=== PATIENT | male | born 1955 | race American Indian/Alaskan Native ===

== ENCOUNTER 2016-11-05 22:13 | Inpatient (IN) | payer MEDICARE ==
[2016-11-05] MEDS ORDERED: HALDOL ONE (22:35)
[2016-11-05] MEDS ORDERED: HALDOL IM ONE (22:37)
--- NOTE | 2016-11-05 23:02 | Emergency Department Report ---
HPI - General Chief Complaint: Psych Time Seen by Provider: 11/05/16 22:21 - HPI HPI: This is a 61-year-old -Burkin[place] male presents to the emergency department with what appears to be some type of substance abuse/intoxication and making claims to his family, as well as to myself, that he wanted to tonight. The patient at one point says he was being funny but did say "I told my family that I want to kill myself." This caused his daughter to call EMS. The patient appears intoxicated versus psychosis but continues to talk very loudly, is easily agitated and is displaying some tangential thoughts. Records show that he has a past nuchal history of alcohol abuse, chronic kidney disease and hypertension. ED Past Medical Hx - Past Medical History Hx Hypertension: Yes Hx Renal Disease: Yes Hx Psychiatric Treatment: Yes Additional medical history: gout - Social History Smoking Status: Current Every Day Smoker Substance Use Type: Alcohol - Medications Home Medications: Home Medications Medication Instructions Recorded Confirmed Last Taken Type Carvedilol [Coreg] 12.5 mg PO BID 11/05/16 11/05/16 Unknown History Fluticasone [Flonase] 2 spray NS QDAY 11/05/16 11/05/16 Unknown History Ketoconazole 2% [Nizoral] 1 applicatio TP QDAY 11/05/16 11/05/16 Unknown History Loratadine [Claritin] 10 mg PO DAILY 11/05/16 11/05/16 Unknown History amLODIPine [Norvasc] 10 mg PO DAILY 11/05/16 11/05/16 Unknown History ED Review of Systems ROS: Stated complaint: SUICIDAL Other details as noted in HPI Comment: Unobtainable due to pts medical conditions Psychiatric: suicidal thoughts. denies: homicidal thoughts Physical Exam - Physical Exam Vital Signs: Vital Signs 11/05/16 22:27 Temperature 98.8 F Pulse Rate 106 H Respiratory 20 Rate Blood Pressure 161/105 O2 Sat by Pulse 99 Oximetry Physical Exam: GENERAL: The patient is well-developed well-nourished. HEENT: Normocephalic. Atraumatic. Extraocular motions are intact. Patient has moist mucous membranes. Pupils equal reactive to light bilaterally. NECK: Supple. Trachea is midline. CHEST/LUNGS: Clear to auscultation. There is no respiratory distress noted. HEART/CARDIOVASCULAR: Regular. There is no tachycardia. There is no gallop rub or murmur. ABDOMEN: Abdomen is soft, nontender. Patient has normal bowel sounds. There is no abdominal distention. SKIN: Skin is warm and dry. NEURO: The patient is awake, alert but appears intoxicated. The patient is cooperative. The patient has no focal neurologic deficits. MUSCULOSKELETAL: There is no tenderness or deformity. There is no limitation range of motion. There is no evidence of acute injury. PSYCH: Patient appears intoxicated. Goes on tangential ramblings. Easily agitated. ED Course Vital Signs 11/05/16 22:27 Temperature 98.8 F Pulse Rate 106 H Respiratory 20 Rate Blood Pressure 161/105 O2 Sat by Pulse 99 Oximetry ED Medical Decision Making - Lab Data Result diagrams: 11/05/16 22:49 11/05/16 22:49 - Medical Decision Making This is a 61-year-old male presents to the emergency department with alcohol intoxication and claims of suicidal ideations to his family and then again upon presentation to the emergency department. The patient later says that he was just kidding. While the patient does display signs of alcohol intoxication, he does have some tangential ramblings and I cannot rule out underlying psychosis. With this behavior, along with the suicidal ideations, the patient has been made a 1013. Labs were ordered to try and get the patient medically cleared for psychiatric placement. However the patient had some abnormal labs show a. Along with the 0.28 blood alcohol level, the patient has a anion gap of 30 and a carbon dioxide /bicarbonate of 17. A venous pH was sent and came back acidotic at 7.307. This is most likely secondary to his ethanol consumption but a lactic acid level , acetaminophen, Tylenol and serum osmolality were sent for further evaluation. However with these labs, the patient will be a medical admit and has been accepted by the hospitalist, Dr. Cisneros. - Differential Diagnosis alcohol intoxication, polysubstance abuse, schizophrenia, bipolar Critical Care Time: No Critical care attestation.: If time is entered above; I have spent that time in minutes in the direct care of this critically ill patient, excluding procedure time. ED Disposition Clinical Impression: High anion gap metabolic acidosis, Renal insufficiency, Suicidal ideations Hypertension Qualifiers: Hypertension type: essential hypertension Qualified Code(s): I10 - Essential ( primary) hypertension Alcohol intoxication Qualifiers: Complication of substance-induced condition: uncomplicated Qualified Code(s): F10.920 - Alcohol use, unspecified with intoxication, uncomplicated Disposition: OP ADMITTED IP TO THIS HOSP Is pt being admited?: Yes Condition: Stable Instructions: Hypertension (ED) Referrals: PRIMARY CARE, [Primary Care Provider] - 3-5 Days Time of Disposition: 02:14
[2016-11-05 23:16] LABS: Hematocrit 38.4 % (35.5-45.6); Hemoglobin 12.8 gm/dl (11.8-15.2); Mean Corpuscular HGB Conc 33 % (32-34); Mean Corpuscular Hemoglobin 32 pg (28-32); Mean Corpuscular Volume 97 fl (84-94); Platelet Count 283 K/mm3 (140-440); Red Blood Count 3.97 M/mm3 (3.65-5.03); Red Cell Distribution Width 13.3 % (13.2-15.2); White Blood Count 10.8 K/mm3 (4.5-11.0)
[2016-11-05 23:28] LABS: Albumin 4.4 g/dL (3.9-5); Albumin/Globulin Ratio 1.2 %; BUN/Creatinine Ratio 13.12; Bilirubin,Total 0.2 mg/dL (0.1-1.2); Calcium 9.3 mg/dL (8.4-10.2); Chloride 100.3 mmol/L (98-107); Total Protein 8.1 g/dL (6.3-8.2)
[2016-11-06 00:39] LABS: Basophils % (Manual) 0 % (0.0-1.8); Blastocytes % (Manual) 0 %; Diff Status Complete; Platelet Estimate Consistent w Auto
[2016-11-06] MEDS ORDERED: VITAMIN B-1 100 MG, FOLVITE 1 MG, INFUVITE 10 ML in NACL 0.9% 1000 ML 1,000 ML IV ONE (00:45)
[2016-11-06 01:53] LABS: Urine Drugs of Abuse Note Disclamer
[2016-11-06 02:04] LABS: Bilirubin,Urine NEG (Negative); Blood,Urine SM (Negative); Ketones,Urine NEG (Negative); Leukocyte Esterase,Urine NEG (Negative); Mucus,Urine FEW /HPF; Nitrite,Urine NEG (Negative); Protein,Urine <15 mg/dL mg/dL (Negative); Urobilinogen,Urine < 2.0 mg/dL (<2.0)
[2016-11-06] MEDS ORDERED: ATIVAN IV PRN ×2 (02:44)
[2016-11-06] MEDS ORDERED: DULCOLAX PR PRN (02:44)
[2016-11-06] MEDS ORDERED: MILK OF MAGNESIA PO PRN (02:44)
[2016-11-06] MEDS ORDERED: ZOFRAN IV PRN (02:44)
[2016-11-06] MEDS ORDERED: TYLENOL PO PRN (02:44)
--- NOTE | 2016-11-06 02:51 | History and Physical Report ---
History of Present Illness Date of examination: 11/06/16 History of present illness: 61-year-old man with a history of hypertension was brought to the emergency room for suicide ideation. Patient stated he was tired of everything, he made a joke to his daughter about ending it all. EMS was called and brought the patient to the emergency room for evaluation. The patient does not want to be admitted, will not speak. Other review of system is unobtainable PAST SURGICAL HISTORY: Unknown SOCIAL HISTORY: Drinks alcohol, smokes cigars, unknown drug use FAMILY HISTORY: Unknown Medications and Allergies Allergies Allergy/AdvReac Type Severity Reaction Status Date / Time No Known Allergies Allergy Unverified 02/13/13 20:32 Home Medications Medication Instructions Recorded Confirmed Last Taken Type Carvedilol [Coreg] 12.5 mg PO BID 11/05/16 11/05/16 Unknown History Fluticasone [Flonase] 2 spray NS QDAY 11/05/16 11/05/16 Unknown History Ketoconazole 2% [Nizoral] 1 applicatio TP QDAY 11/05/16 11/05/16 Unknown History Loratadine [Claritin] 10 mg PO DAILY 11/05/16 11/05/16 Unknown History amLODIPine [Norvasc] 10 mg PO DAILY 11/05/16 11/05/16 Unknown History Active Meds: Active Medications Acetaminophen (Tylenol) 650 mg PO Q4H PRN PRN Reason: Pain MILD(1-3)/Fever >100.5/BLACK Bisacodyl (Dulcolax) 10 mg GA QDAY PRN PRN Reason: Constipation unrelieved by MOM Enoxaparin Sodium (Lovenox) 30 mg SUB-Q QDAY BILL Folic Acid (Folvite) 1 mg PO QDAY BILL Thiamine HCl 100 mg/ Folic Acid 1 mg/ Multivitamins/Minerals 10 ml/ Sodium Chloride 1,011.2 mls @ 250 mls/hr IV ONCE.ED ONE Stop: 11/06/16 04:47 Last Admin: 11/06/16 02:16 Dose: 250 mls/hr Sodium Chloride (Nacl 0.9% 1000 Ml) 1,000 mls @ 100 mls/hr IV DIRECT BILL Lorazepam (Ativan) 2 mg IV Q1HR PRN PRN Reason: CIWA-Ar 8-15 Lorazepam (Ativan) 4 mg IV Q1HR PRN PRN Reason: CIWA-Ar 16-25 Magnesium Hydroxide (Milk Of Magnesia) 30 ml PO Q4H PRN PRN Reason: Constipation Ondansetron HCl (Zofran) 4 mg IV Q8H PRN PRN Reason: N/V unrelieved by Reglan Thiamine HCl (Vitamin B-1) 100 mg PO DAILY ONE Stop: 11/06/16 02:45 Exam - Physical Exam Narrative exam: Gen. appearance: Patient lying in bed, no apparent distress HEENT: Normocephalic, atraumatic, pupils equally round and reactive to light, extraocular movement intact, and no sclericterus,. No JVD or thyromegaly or nodule,neck supple, no carotid bruit ,mucous membranes moist, no exudate or erythema Heart: S1, S2, regular rate and rhythm Lungs: Clear to auscultation bilaterally, breathing comfortable Abdomen: Positive bowel sounds, nontender, nondistended, no organomegaly Extremity: No edema, cyanosis, clubbing Skin: No rash, nodules, warm, dry Neuro: Oriented 3, cranial nerves II-12 intact, speech is fluent, motor and sensory intact - Constitutional Vitals: Temp Pulse Resp BP Pulse Ox 98.8 F 106 H 18 161/105 99 11/05/16 22:27 11/05/16 22:27 11/06/16 01:32 11/05/16 22:27 11/06/16 01:32 Results - Labs CBC & Chem 7: 11/05/16 22:49 11/05/16 22:49 Labs: Abnormal lab results 11/05/16 11/05/16 11/05/16 Range/Units 22:49 22:49 22:49 MCV 97 H (84-94) fl Lymphocytes % (Manual) 47.0 H (13.4-35.0) % VBG pH (7.320-7.420) Carbon Dioxide 17 L (22-30) mmol/L BUN 21 H (9-20) mg/dL Creatinine 1.6 H (0.8-1.5) mg/dL AST 47 H (5-40) units/L ALT 57 H (7-56) units/L Salicylates (2.8-20.0) mg/dL Plasma/Serum Alcohol 0.28 H (0-0.07) gm% 11/05/16 11/06/16 Range/Units 22:49 00:53 MCV (84-94) fl Lymphocytes % (Manual) (13.4-35.0) % VBG pH 7.307 L (7.320-7.420) Carbon Dioxide (22-30) mmol/L BUN (9-20) mg/dL Creatinine (0.8-1.5) mg/dL AST (5-40) units/L ALT (7-56) units/L Salicylates < 0.3 L (2.8-20.0) mg/dL Plasma/Serum Alcohol (0-0.07) gm% - Imaging and Cardiology EKG: image reviewed Assessment and Plan Suicidal ideation Acute renal insufficiency Hypertension Alcohol abuse Admits medicine Place on 101, consult psych Start IV fluid, CIWA protocol with IV Ativan Start Lopressor for high blood pressure Start DVT prophylaxis
[2016-11-06] MEDS ORDERED: NACL 0.9% 1000 ML 1,000 ML IV SCH (03:00)
[2016-11-06] MEDS: VITAMIN B-1 PO SCH ×2 (05:11→19:57)
[2016-11-06 10:31] LABS: Blood Urea Nitrogen 19 mg/dL (9-20)
--- NOTE | 2016-11-06 10:52 | Discharge Summary ---
Providers - Providers Date of Admission: 11/06/16 02:44 Date of discharge: 11/06/16 Attending physician: VICTORIANO TOLBERT MD 11/06/16 02:49 psychiatry consult [Consult to Mental Health] [CONS] Routine Reason For Exam: SI Place consult to:: PSYCH Notified:: Evaristo Phone number called:: [phone] Was contact made?: Yes If yes, spoke with:: Evaristo Time called:: 08:04 Hospitalization Condition: Stable Disposition: DC/TX PSY HOSP/PSY UNIT Time spent for discharge: 35 mins Exam - Constitutional Vitals: Temp Pulse Resp BP Pulse Ox 98.2 F 97 H 17 150/91 97 11/06/16 08:24 11/06/16 08:30 11/06/16 08:30 11/06/16 08:30 11/06/16 08:30 Plan Activity: advance as tolerated, fall precautions Diet: low fat Special Instructions: smoking cessation Follow up with: PRIMARY CAREMD [Referring] - 3-5 Days WINSTON CALL MD [Staff Physician] - 7 Days
--- NOTE | 2016-11-06 13:38 | Event Note ---
Date: 11/06/16 Patient is examined this morning acute distress reports that his symptoms are much improved. He says that he just lost it and was tired that his place at this point. He understands he needs psychiatric evaluation. A repeat BUN and creatinine was done as normal. If psych uphelds the 1013 patient can be transfered to inpatient psych, if rescinded patient's Home.
--- NOTE | 2016-11-06 19:17 | Consultation ---
History of Present Illness - Reason for Consult Consult date: 11/06/16 Reason for consult: Mental Noah Evaulation Requesting physician: VICTORIANO TOLBERT - Chief Complaint Chief complaint: "I am ready to go home" - History of Present Psychiatric Illness This is a 61-year-old -Ang[place] male presents to the emergency department with what appears to be some type of substance abuse/intoxication and making claims to his family, as well as to myself, that he wanted to tonight. Today patient is calm and cooperative during assessment. He stated that he just lost it when stated in the ER that he is suicidal. He would not tell me why he lost his cool and started back drinking. He stated that he have not took a drink in 6 years, but lost his cool prior to coming to [facility]. He stated that he was diagnosed with bipolar years ago. He stated that he have not taking any psy medications in years. He denies wanting to kill himself now or in the past. He denies SI?HI's, AVH's, and depression symptoms. He denies recreational drug use. Medications and Allergies Allergies Allergy/AdvReac Type Severity Reaction Status Date / Time No Known Allergies Allergy Unverified 02/13/13 20:32 Home Medications Medication Instructions Recorded Confirmed Last Taken Type Carvedilol [Coreg] 12.5 mg PO BID 11/05/16 11/05/16 Unknown History Fluticasone [Flonase] 2 spray NS QDAY 11/05/16 11/05/16 Unknown History Ketoconazole 2% [Nizoral] 1 applicatio TP QDAY 11/05/16 11/05/16 Unknown History Loratadine [Claritin] 10 mg PO DAILY 11/05/16 11/05/16 Unknown History amLODIPine [Norvasc] 10 mg PO DAILY 11/05/16 11/05/16 Unknown History Active Meds: Active Medications Acetaminophen (Tylenol) 650 mg PO Q4H PRN PRN Reason: Pain MILD(1-3)/Fever >100.5/BLACK Bisacodyl (Dulcolax) 10 mg PA QDAY PRN PRN Reason: Constipation unrelieved by MOM Enoxaparin Sodium (Lovenox) 40 mg SUB-Q QDAY BILL Folic Acid (Folvite) 1 mg PO QDAY [facility] Sodium Chloride (Nacl 0.9% 1000 Ml) 1,000 mls @ 125 mls/hr IV DIRECT BILL Lorazepam (Ativan) 2 mg IV Q1HR PRN PRN Reason: CIWA-Ar 8-15 Lorazepam (Ativan) 4 mg IV Q1HR PRN PRN Reason: CIWA-Ar 16-25 Magnesium Hydroxide (Milk Of Magnesia) 30 ml PO Q4H PRN PRN Reason: Constipation Metoprolol Tartrate (Lopressor) 25 mg PO BID BILL Ondansetron HCl (Zofran) 4 mg IV Q8H PRN PRN Reason: N/V unrelieved by Reglan Thiamine HCl (Vitamin B-1) 100 mg PO DAILY [facility] Last Admin: 11/06/16 05:11 Dose: Not Given Mental Status Exam - Vital signs Last Vital Signs Temp 98.4 F 11/06/16 16:00 Pulse 82 11/06/16 16:00 Resp 20 11/06/16 16:00 BP 170/94 11/06/16 16:00 Pulse Ox 97 11/06/16 16:00 - Exam Narrative exam: ROS: (-) depression, (-) psychosis MSE: Appearance: cooperative, calm Behavior: good eye contact Speech: regular rate and tone Mood: "okay" Affect: congruent to mood Thought Process: linear Thought Content: denies SI/HI's and AVH's Motor Activity: lying in bed Cognition: a/ox 3 Insight: fair Judgment: fair Results Result Diagrams: 11/05/16 22:49 11/06/16 09:48 Abnormal lab results 11/06/16 Range/Units 09:48 Lactic Acid 4.00 H* (0.7-2.0) mmol/L All other labs normal. Assessment and Plan Assessment and plan: Impression: Hx of Bipolar. Today patient is calm and cooperative during assessment. He stated that he just lost it when stated in the ER that he is suicidal. He would not tell me why he lost his cool and started back drinking. Patient does not believe he has a mental illness. He denies SI/HI's and AVH's. DD: Anxiety DO Recommendation/Plan: Continue 1013. Will gather collateral information from his daughter to determine proper dispo and treatment.
[2016-11-06] MEDS: FOLVITE PO SCH (20:01)
[2016-11-06] MEDS: LOPRESSOR PO SCH ×2 (20:02→22:00)
[2016-11-06] MEDS: LOVENOX SUB-Q SCH (20:03)
[2016-11-06] MEDS: APRESOLINE IV PRN (21:59)
[2016-11-07] MEDS: APRESOLINE IV PRN (05:28)
[2016-11-07 06:09] LABS: Basophils % (Auto) 0.7 % (0.0-1.8); Eosinophils % (Auto) 2.3 % (0.0-4.3); Hemoglobin 12.4 gm/dl (11.8-15.2); Mean Corpuscular HGB Conc 34 % (32-34); Mean Corpuscular Hemoglobin 32 pg (28-32); Platelet Count 242 K/mm3 (140-440); Red Blood Count 3.87 M/mm3 (3.65-5.03); Red Cell Distribution Width 12.9 % (13.2-15.2); White Blood Count 10.9 K/mm3 (4.5-11.0)
[2016-11-07 06:11] LABS: Mean Corpuscular Volume 95 fl (84-94)
[2016-11-07 06:23] LABS: Alanine Aminotransferase 46 units/L (7-56); Albumin 4.1 g/dL (3.9-5); Albumin/Globulin Ratio 1.4 %; Alkaline Phosphatase 71 units/L (35-129); Anion Gap 19 mmol/L; BUN/Creatinine Ratio 12.72; Blood Urea Nitrogen 14 mg/dL (9-20); Calcium 8.7 mg/dL (8.4-10.2); Carbon Dioxide 23 mmol/L (22-30); Chloride 99.7 mmol/L (98-107); Glucose 117 mg/dL (75-100); Potassium 3.5 mmol/L (3.6-5.0); Sodium 138 mmol/L (137-145); Total Protein 7.1 g/dL (6.3-8.2)
[2016-11-07] MEDS ORDERED: K-DUR PO ONE (08:44)
[2016-11-07] MEDS: FOLVITE PO SCH (09:44)
[2016-11-07] MEDS: LOPRESSOR PO SCH (09:44)
[2016-11-07] MEDS: LOVENOX SUB-Q SCH (09:45)
[2016-11-07] MEDS: VITAMIN B-1 PO SCH (09:46)
[2016-11-07 09:55] VITALS: BP 172/97
--- NOTE | 2016-11-07 12:09 | Progress Note ---
Subjective - Reason for Consult Consult date: 11/07/16 Reason for consult: Psychiatry Follow-up - Chief Complaint Chief complaint: "I am ready to go home" This is a 61-year-old -[place] male presents to the emergency department with what appears to be some type of substance abuse/intoxication and making claims to his family, as well as to myself, that he wanted to tonight. Today patient is calm and cooperative during the assessment. He stated that his biggest issue is relapsing on alcohol (etoh). Patient was more open about his concerns today. He stated that he struggled with getting to sleep. Patient stated that he want to sleep. He is concerned about his kidneys, because he went to an urgent care facility and his renal functions was elevated. He stated, "I am an old man now, I want to be around for my family." He started drinking prior to his admission to [facility] because he felt anxious about his overall health. He stated that he will not do that again and is willing to seek help through rehab services. 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 I spoke with his daughter Ester Jolly [phone]. She agree with her father, she thinks the PHP will help him stay away from the alcohol. He denies SI/HI's, AVH's, and a poor appetite. Patient stated getting to sleep has always been an issue for him. Patient stated Trazodone was effective for him in the past. Per his daughter the patient has not been inpatient (psy services) in years. Mental Status Exam - Vital signs Last Vital Signs Temp 98.0 F 11/07/16 09:54 Pulse 94 H 11/07/16 11:58 Resp 20 11/07/16 10:00 BP 172/97 11/07/16 09:54 Pulse Ox 99 11/07/16 10:00 - Exam Narrative exam: MSE: Appearance: cooperative, calm Behavior: good eye contact Speech: regular rate and tone Mood: "okay" Affect: congruent to mood Thought Process: linear Thought Content: denies SI/HI's and AVH's Motor Activity: lying in bed Cognition: a/ox 3 Insight: fair Judgment: fair Assessment and Plan Impression: Hx of Alcohol Use DO. This is a 61-year-old -[place] male presents to the emergency department with what appears to be some type of substance abuse/intoxication and making claims to his family, as well as to myself, that he wanted to tonight. Today patient is calm and cooperative during the assessment. He stated that his biggest issue is relapsing on alcohol (etoh). Patient was more open about his concerns today. He stated that he struggled with getting to sleep.He denies SI/HI's and AVH's. Patient is not a threat to self. Recommendation/Plan: Rescind 1013. Patient is volunteering for the [place] [facility]. Patient was given outpatient psy/rehab services for his local area. We discussed the importance to abstain from alcohol (etoh). Start Trazodone 50 mg PO HS for sleep. Discussed with patient possible suicidality, medication induced zee, and priapism reference Trazodone. Patient may need transportation home.
--- NOTE | 2016-11-07 13:58 | Discharge Summary ---
Providers - Providers Date of Admission: 11/06/16 02:44 Date of discharge: 11/07/16 Attending physician: WESLEY ANN 11/06/16 02:49 psychiatry consult [Consult to Mental Health] [CONS] Routine Reason For Exam: SI Place consult to:: PSYCH Notified:: Evaristo Phone number called:: [phone] Was contact made?: Yes If yes, spoke with:: Evaristo Time called:: 08:04 Hospitalization Condition: Stable Hospital course: -SI: he was intoxicated on admission, FARRAH level with 4x normal at 0.28. Now, that he is sober, he denies SI -Accelerated htn: stop nss at 125ml/hr. -Hypokalemia: replaced -Alcohol intoxication: Counseling done -Acute renal failure, vasomotor nephropathy, poa, resolved -Acute toxic metabolic encephalopathy due to alcohol Disposition to [facility] Disposition: DC-01 TO HOME OR SELFCARE Time spent for discharge: 32 minutes Core Measure Documentation - Palliative Care Palliative Care/ Comfort Measures: Not Applicable - Core Measures Any of the following diagnoses?: none - VTE Discharge Requirements Deep Vein Thrombosis/Pulmonary Embolism Present on Admission: No Has pt received <5 days of overlap therapy or INR<2.0: No Anticoagulant overlap therapy prescribed at discharge: No Contraindication No Overlap Therapy order at DC: Not Indicated Exam - Physical Exam Narrative exam: GEN: WDWN, NAD, AWAKE, ALERT, ORIENTATED x 3 HEENT: NCAT, PERRL, EOMI, OP CLEAR NECK: SUPPLE, NO THYROMEGALY, NO JVD, NO LAD CVS: RRR, NORMAL S1S2 LUNGS/CHEST: CTA B, NORMAL CHEST EXPANSION B, GOOD AIR ENTRY B ABD: SOFT, NTND, GBS, NO REBOUND OR GUARDING EXT/SKIN: NO SIGNIFICANT EDEMA OR RASH MSK: FROM X 4 EXTREMITIES NEURO: CN 2-12 GROSSLY INTACT, NO FOCAL DEFICITS PSY: CALM - Constitutional Vitals: Temp Pulse Resp BP Pulse Ox 98.0 F 94 H 20 172/97 99 11/07/16 09:54 11/07/16 11:58 11/07/16 10:00 11/07/16 09:54 11/07/16 10:00 Plan Activity: advance as tolerated, no driving until cleared by PCP, other (no strenous activites until cleared by PCP. ) Diet: low salt Follow up with: PRIMARY CARE, [Referring] - 3-5 Days WINSTON CALL MD [Staff Physician] - 7 Days Prescriptions: traZODone [Desyrel] 50 mg PO QHS #30 tablet
[2016-11-07] MEDS ORDERED: DESYREL PO SCH (22:00)
== END 2016-11-07 20:00 | disposition home or self-care (01) | DRG 896 ==
LOC: ED 22:13 → EEVIPCON 22:13 → 4A 11-06 02:44
PROVIDERS: ADMIT Internal Medicine; ATTEND Internal Medicine
DX: F10.129 Alcohol abuse with intoxication, unspecified (principal); N17.0 Acute kidney failure with tubular necrosis; G92 Toxic encephalopathy; R45.851 Suicidal ideations; E87.2 Acidosis; E87.6 Hypokalemia; I12.9 Hypertensive chronic kidney disease with stage 1 through stage 4 chronic kidney disease, or unspecified chronic kidney disease; N18.9 Chronic kidney disease, unspecified; M10.9 Gout, unspecified; F17.200 Nicotine dependence, unspecified, uncomplicated; F31.9 Bipolar disorder, unspecified; Z71.41 Alcohol abuse counseling and surveillance of alcoholic
CPT/HCPCS: 36415; 80053; 80307; 80320; 81001; 82140; 82565; 82805; 83930; 84520; 85007; 85025; 94760; 96365; 96366; 96372; 99285; G0480; J0360; J1630; J1650; J3411; J7030